=== PATIENT | male | born 1980 | race Caucasian/White ===

== ENCOUNTER 2022-04-21 10:43 | Emergency (ER) | payer OTHER ==
[2022-04-21 10:55] VITALS: BP 119/85
[2022-04-21] MEDS ORDERED: LIDOCAINE PATCH 5% TOP STA (11:21)
[2022-04-21] MEDS ORDERED: KETOROLAC 30 MG/ML VIAL IM STA (11:21)
[2022-04-21] MEDS ORDERED: methocarbamoL 500 MG TABLET PO STA (11:21)
--- NOTE | 2022-04-21 11:44 | ED Physician Documentation ---
PD HPI BACK PAIN - Stated complaint Stated Complaint: NUMBNESS L LEG/LOW BACK SPASM - Chief complaint Chief Complaint: Back Pain - History obtained from History obtained from: Patient - History of Present Illness Timing - onset: Last night - Additional information Additional information: 41-year-old male presents for muscle spasm in his lower back. Patient states that he irritated his lumbar back 2 days ago while exercising. Not relieved with [id number] NSAIDs. He is here today for pain control. Patient states he came today because his and coworkers prompted him to. Reports associated left leg pain, denies numbness, weakness, difficulty ambulating, bowel or bladder incontinence, saddle anesthesia. Review of Systems Ten Systems: 10 systems reviewed and negative Constitutional: denies: Fever, Chills, Myalgias Eyes: denies: Loss of vision, Decreased vision, Photophobia Ears: denies: Loss of hearing, Ear pain, Drainage/discharge Nose: denies: Rhinorrhea / runny nose, Congestion, Foreign Body Throat: denies: Dental pain / toothache, Oral lesions / sores, Sore throat Cardiac: denies: Chest pain / pressure, Palpitations, Calf pain Respiratory: denies: Dyspnea, Cough, Wheezing Musculoskeletal: reports: Back pain. denies: Neck pain, Extremity pain, Joint pain, Extremity swelling, Joint swelling Neurologic: denies: Generalized weakness, Focal weakness, Numbness, Difficulty speaking, Syncope, Seizure, Confused PD PAST MEDICAL HISTORY - Past Medical History Past Medical History: Yes Cardiovascular: None Endocrine/Autoimmune: None GI: Hemorrhoids - Past Surgical History Past Surgical History: Yes General: Other - Present Medications Home Medications: Ambulatory Orders Medication Instructions Recorded Confirmed Hydrocortisone Acetate [Anucort-Hc] 25 mg RC DAILY #5 supp.rect 07/22/16 methocarbamoL [Robaxin] 500 mg PO Q6H #20 tablet 04/21/22 - Allergies Allergies/Adverse Reactions: Allergies Allergy/AdvReac Type Severity Reaction Status Date / Time No Known Drug Allergies Allergy Verified 04/21/22 10:55 - Social History Does the pt smoke?: No Smoking Status: Never smoker - Immunizations Immunizations are current?: Yes PD ED PE NORMAL - Vitals Vital signs reviewed: Yes - General General: Alert and oriented X 3, No acute distress, Well developed/nourished - HEENT HEENT: Atraumatic, PERRL, EOMI, Ears normal - Neck Neck: Supple, no meningeal sign, No bony TTP, No adenopathy - Cardiac Cardiac: RRR, No murmur, Strong equal pulses - Respiratory Respiratory: No respiratory distress, Clear bilaterally - Abdomen Abdomen: Normal bowel sounds, Soft, Non tender, Non distended - Back Back: No CVA TTP, No spinal TTP, Other (L sided paraspinal lumbar TTP) - Derm Derm: Normal color, Warm and dry, No rash - Extremities Extremities: No deformity, No tenderness to palpate, Normal ROM s pain, No edema, No calf tenderness / cord - Neuro Neuro: Alert and oriented X 3, director of math 2-12 intact, No motor deficit, No sensory deficit, Normal speech - Psych Psych: Normal mood Results - Vitals Vitals: Vital Signs - 24 hr 04/21/22 10:53 Temperature 36.4 C L Heart Rate 58 L Respiratory 16 Rate Blood Pressure 119/85 H O2 Saturation 99 Oxygen O2 Source Room air PD MEDICAL DECISION MAKING - ED course ED course: Muscle spasm, likely after overuse in the gym. Neurologically and vascularly intact, no signs or symptoms of cauda equina. Patient given nonnarcotic analgesia and prescriptions sent to pharmacy. Departure - Departure Disposition: 01 Home, Self Care Clinical Impression: Back pain, Muscle spasm Condition: Stable Instructions: ANTI-INFLAMMATORY, General Prescriptions: methocarbamoL [Robaxin] 500 mg PO Q6H #20 tablet Discharge Date/Time: 04/21/22 11:56
== END 2022-04-21 11:56 | disposition home or self-care (01) ==
LOC: ED 10:43
DX: M54.50 Low back pain, unspecified (principal); M62.838 Other muscle spasm
CPT/HCPCS: 96372; 99282; 99283; A9270

== ENCOUNTER 2023-11-13 10:43 | Outpatient (CLI) | payer OTHER ==
--- NOTE | 2023-11-13 11:39 | Sleep Patient Instructions ---
Sleep Center Visit Summary - Patient Visit Information Reason for Visit: Initial consultation - Patient Instructions Instructions Attached: Sleep Study Additional Instructions: You will be completing a sleep study, either an in-lab polysomnography (PSG) or home sleep study (HST). You will follow-up in the sleep care office after the sleep study is completed to hear the results and talk about therapy, if needed. You will be called by our office staff to schedule this appointment, but you may contact us with any questions. - Clinic Information Contact: [facility] [address] [place] [id number] [email or web address] T: [phone]
--- NOTE | 2023-11-13 11:47 | SLEEP CARE CONSULTATION ---
Information from patient questionnaire entered by Elisa Leyva. I have reviewed and concur with the information entered by Elisa Leyva. This document represents the service I personally performed and the decisions made by me, Tessa Goetz ARNP. History of Present Illness Service Date and Time: 11/13/2023 1043 Reason for Visit: New patient Chief Complaint: reports: Excessive daytime sleepiness, Observed pauses in breathing, Fatigue Date of Onset: 10YRS Usual bedtime: 9PM Time it takes to fall asleep: 10-15MINS Snores at night: Yes Observed to quit breathing while asleep: Yes Sleeps alone due to snoring: No Number of times waking at night: 0-1 Reasons for waking at night: reports: Other (onely with spicy foods causing heartburn) Toss, Turn, or Twitch while sleeping: Yes Recalls having dreams: Yes Usually gets out of bed at: 0520 Feels refreshed in the morning: No (dragging in AM) Morning headache: Yes (juan during pollen season; 1 time a week; resolves with medication) Sleepy or fatigued during the day: Yes (no unintentional naps) Ever fallen asleep while driving: No Takes day naps: No Dreams during day naps: No Prior sleep studies: No Additional HPI information: I had the pleasure of seeing DEE LANE today regarding the possibility of him having a sleep disorder. His current complaints are excessive daytime sleepiness, observed pauses in breathing and fatigue. He says he saw his primary provider with concerns about daytime fatigue, etc and they referred him for sleep evaluation. His says he snores like a freight train and she has noticed that he appears to stop breathing. He will pause in breathing and then make sounds before resuming snoring. He says he does not usually wake up feeling rested in the morning. He does not have any difficulty falling asleep and will usually sleep through the night without waking up. He denies ever waking up feeling like he is choking or gasping for air. He says he has had some evaluation for elevated blood pressure through his primary clinic but they think it is white coat syndrome. He is working out daily, weights and cardio. He is trying to eat healthy and juicing to lose weight but cannot seem to lose weight. He has gained about 40 pounds over last 5 years. 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 Patient is and lives in [place]. Have you smoked in the past 12 months: No Cigarettes per day (20/pack): 10 Years of smokin Quit date: 2017 Smoking Pack Years: 11.5 Alcohol use: No Caffeine use: Yes Caffeine amount and frequency: 1 CAN A DAY Family History Family history of sleep disordered breathing: Yes Family Hx Sleep Apnea: Mother: Snoring, Father: Snoring Allergies and Home Medications Known drug allergies: No Drug allergies reviewed: Yes Home medication list reviewed: Yes Allergy and home medication list: Allergies No Known Drug Allergies Allergy (Verified 11/11/23 11:38) Home Medications Medication Instructions Recorded Confirmed Last Taken Type Multivitamin See Rx Instructions .ROUTE .COMPLEX 11/13/23 11/13/23 Unknown History Review of Systems Weight gain over past 5 years: 40 Cardiovascular: denies: high blood pressure (only whitecoat) Respiratory: denies: shortness of breath Gastrointestinal: denies: heartburn Neurological: reports: head trauma (2006). denies: headaches Psychiatric: denies: anxiety, depression Ear/Nose/Throat: denies: tonsillectomy, wisdom teeth removed Endocrine: reports: sluggishness Musculoskeletal: reports: joint pain, back pain Immunologic: reports: allergies to food or environment Physical Exam Vital signs obtained and entered by: ELISA Rivera MA Blood Pressure: 156/99 (LEFT ARM) Cuff size: regular Heart Rate: 61 O2 Saturation: 98 Height: 5 ft 6.25 in Weight: 198 lb 9.6 oz Body Mass Index: 31.8 BMI Classification: Obese Neck circumference: 16 Mouth and throat: normal Soft palate: long Hard palate: normal Uvula: normal Uvula visualization: 100% Mallampati Class I Tongue: enlarged in size with teeth davies on lateral edges Tonsils: small Neck: normal w/o lymphadenopathy or thyromegaly Heart: regular rate and rhythm Lungs: clear bilaterally Impression and Plan 1. Suspected Obstructive Sleep Apnea-Hypopnea Syndrome, as suggested by a history of loud and irregular snoring, observed cessation of breath while asleep, morning headache, unrefreshed sleep and cognitive impairment. Narrow oropharynx and obesity are common predisposing factors for obstructive sleep apnea-hypopnea syndrome. I recommend proceeding to polysomnography to confirm the diagnosis and to assess severity. If the patient has significant sleep disordered breathing, a manual CPAP titration study will also be performed to find the optimal treatment pressure. I informed the patient of what the sleep studies involve and after some discussion, obtained agreement to proceed. The pathophysiology of obstructive sleep apnea-hypopnea syndrome was discussed with the patient and health risks of cardiovascular and cerebrovascular disease if not treated. Risks of drowsy driving discussed in detail and patient advised to avoid long distance driving and to harness puller at the first sign of drowsiness. Patient agreed to plan. * Schedule polysomnography +- manual CPAP titration study and return in 1-2 weeks after the study to discuss result and initiate therapy. * Avoid long distance driving or driving when feeling sleepy. * Avoid alcohol, sedative and muscle relaxant around bedtime. * Attempt to lose weight. * Review instructions provided by trained office staff on how to prepare for the sleep study. * Return for follow-up after sleep study completed. Counseling Topics: Weight loss health impact Plan: PSG/HST Visit Type: In Office Time Spent with Patient (minutes): 31 Provider Statement: I spent 100% of the Face to Face Visit with the patient with greater than 50% spent counseling the patient and coordination of care.
[2023-11-13 11:54] VITALS: BP 156/99; O2SAT 98
== END 2023-11-13 10:44 | disposition home or self-care (01) ==
LOC: SC 10:43
PROVIDERS: ATTEND Nurse Practitioner Family
DX: R06.83 Snoring (principal); G47.8 Other sleep disorders; R06.81 Apnea, not elsewhere classified; R53.83 Other fatigue; G47.10 Hypersomnia, unspecified; R41.89 Other symptoms and signs involving cognitive functions and awareness; E66.9 Obesity, unspecified; Z68.31 Body mass index [BMI] 31.0-31.9, adult; Z87.891 Personal history of nicotine dependence
CPT/HCPCS: 99203; 99212

== ENCOUNTER 2023-12-16 19:22 | Outpatient (CLI) | payer OTHER | END 2023-12-16 19:23 | disposition home or self-care (01) | LOC: SC 19:22 | PROVIDERS: ATTEND Nurse Practitioner Family | DX: G47.61 Periodic limb movement disorder (principal) | CPT/HCPCS: 95810 ==

== ENCOUNTER 2024-01-07 13:08 | Outpatient (CLI) | payer OTHER ==
--- NOTE | 2024-01-07 13:50 | Sleep Patient Instructions ---
Sleep Center Visit Summary - Patient Visit Information Reason for Visit: Sleep study followup - Patient Instructions Instructions Attached: Snoring Tips Prevent Additional Instructions: Your sleep study today was negative for significant sleep disordered breathing. You were found to have episodes of snoring. There are different ways to control snoring including weight loss, oral devices made by a dentist or surgical options through ENT specialist. You should not use oral devices that do not fit properly because they can affect your bite. You should also check insurance coverage of oral devices for snoring because they may not be cover well. You may obtain a referral to an ENT specialist through your primary provider. Follow-up as needed. - Clinic Information Contact: [facility] [address] [place] [address] [email or web address] T: [phone]
--- NOTE | 2024-01-07 13:53 | SLEEP CARE CONSULTATION ---
Information from patient questionnaire entered by Elisa Leyva. I have reviewed and concur with the information entered by Elisa Leyva. This document represents the service I personally performed and the decisions made by , Tessa Goetz ARNP. History of Present Illness Service Date and Time: 01/07/2024 1308 Initial [place] Sleepiness Scale score: 7 (10/11/23) Current [place] Sleepiness Scale score: 7 (01/07/24) Additional HPI information: DEE LANE returns for follow up and results of the recently performed polysomnography. The patient was informed of the following findings: No significant sleep disordered breathing with an average AHI of 1.2 and wero oxygen saturation of 89%. He has mild PLMs not contributing to sleep fragmentation. I explained the pathophysiology behind obstructive sleep apnea. Patient does not have sleep apnea and was advised how weight gain could increase the risk of developing sleep apnea in the future. I strongly encouraged the patient to lose weight. Patient has moderate to loud snoring. Snoring can be reduced by weight loss. Weight loss is best achieved with diet consult. Patient instructed to contact PCP for referral. Snoring can also be treated with an oral appliance from a dentist. Advised to check insurance coverage. In addition, an ENT evaluation can be do to see if other treatment is indicated. Patient does not drink alcohol. Patient was cautioned about risks of drowsy driving until sleepiness symptoms resolve. Patient denies drowsy driving. Sleep Study - Results Type of Sleep Study: Polysomnography (COMPLETED 12/16/23) Prior sleep studies: No Polysomnography/Home Sleep Study results: IMPRESSION: The quality of the study is good. The patient had normal sleep efficiency. The sleep architecture was also relatively normal considering the first-night effect. Respiratory monitoring showed no significant sleep disordered breathing (AHI = 1.2) or hypoxia (wero oxygen saturation of 89%). The patient slept adequately in supine position (supine AHI = 1.9; non-supine = 0.32). Snore was moderate to loud in intensity. There was mild periodic leg movement of sleep not associated with sleep fragmentation. Cardiac rhythm was normal sinus rhythm without significant arrhythmia. No abnormal behavior (parasomnia) observed during the night. Allergies and Home Medications Known drug allergies: No Drug allergies reviewed: Yes Home medication list reviewed: Yes (no changes) Allergy and home medication list: Allergies No Known Drug Allergies Allergy (Verified 01/05/24 10:56) Review of Systems Review of systems same as previous: Yes (NO CHANGE) Physical Exam Vital signs obtained and entered by: ELISA Rivera MA Blood Pressure: 143/93 (RIGHT ARM) Cuff size: regular Heart Rate: 82 O2 Saturation: 97 Height: 5 ft 6.25 in Weight: 202 lb 9.6 oz Body Mass Index: 32.4 BMI Classification: Obese Impression and Plan 1. Periodic limb movement, mild, that did not fragment patients sleep. Periodic limb movement of sleep (PLMS) is characterized by episodes of repetitive limb movements that occur during sleep and usually involve the lower limbs. The etiology is unknown. Caffeine can also aggravate PLMS and should be avoided. Sleep hygiene methods can also improve sleep as well as lifestyle changes such as regular exercise. Patient was advised that no treatment is needed at this time. If symptoms increase, then further evaluation is indicated. 2. Snoring but no significant sleep disordered breathing. Patient advised that often weight loss will reduce snoring as well as apnea risk. An oral appliance can also be used for snoring. This would require a dental consultation. Patient cautioned not to use other online appliances as can cause bite issues. Patient is advised to check if insurance will cover. An ENT consult can also be helpful to determine if any other treatment is an option. 3. Obesity, unspecified. Currently patients BMI is 32.4. Obesity increases the risk of apnea, CPAP pressure requirements and overall health risks especially cardiovascular and diabetes. Thus patient is advised to lose weight. * Attempt to lose weight * Follow up with PCM as needed for mild PLMs * Return as needed for follow up. Counseling Topics: Weight loss health impact Follow up with Sleep Care in: as needed Visit Type: In Office Time Spent with Patient (minutes): 12 Provider Statement: I spent 100% of the Face to Face Visit with the patient with greater than 50% spent counseling the patient and coordination of care.
[2024-01-07 13:54] VITALS: BP 143/93; O2SAT 97
== END 2024-01-07 13:09 | disposition home or self-care (01) ==
LOC: SC 13:08
PROVIDERS: ATTEND Nurse Practitioner Family
DX: G47.61 Periodic limb movement disorder (principal); R06.83 Snoring; E66.9 Obesity, unspecified; Z68.32 Body mass index [BMI] 32.0-32.9, adult
CPT/HCPCS: 99212